=== PATIENT | female | born 1995 | race Caucasian/White ===

== ENCOUNTER → 2022-11-15 | Outpatient (REF) | payer OTHER ==
[2022-11-16 00:26] LABS: GC DNA AMPLIFICATION NEGATIVE (NEGATIVE)
== END ==
LOC: M SFHCWAGY 17:38
PROVIDERS: ATTEND Nurse Practitioner Family
DX: R10.2 Pelvic and perineal pain (principal)

== ENCOUNTER → 2022-11-17 | Outpatient (CLI) | payer OTHER | LOC: M WHC 11:25 → EDUNIT# 12:00 | PROVIDERS: ATTEND Nurse Practitioner Family | DX: R10.2 Pelvic and perineal pain (principal) ==

== ENCOUNTER → 2023-01-05 | Outpatient (CLI) | payer OTHER | LOC: M WHC 15:10 | PROVIDERS: ATTEND Nurse Practitioner Family | DX: N83.202 Unspecified ovarian cyst, left side (principal); N83.201 Unspecified ovarian cyst, right side ==

== ENCOUNTER → 2023-01-17 | Outpatient (CLI) | payer OTHER ==
[2023-01-17 17:54] LABS: HEMOGLOBIN A1c 4.9 % (4.0-6.0)
== END ==
LOC: M PLALAB 15:31
PROVIDERS: ATTEND Nurse Practitioner Family
DX: N83.202 Unspecified ovarian cyst, left side (principal)

== ENCOUNTER → 2023-03-02 | Outpatient (CLI) | payer OTHER | LOC: M WHC 14:40 | PROVIDERS: ATTEND Nurse Practitioner Family | DX: N83.202 Unspecified ovarian cyst, left side (principal) ==

== ENCOUNTER → 2023-06-23 | Outpatient (CLI) | payer OTHER | LOC: M WHC 07:42 | PROVIDERS: ATTEND Obstetrics & Gynecology | DX: N83.202 Unspecified ovarian cyst, left side (principal) ==

== ENCOUNTER → 2024-01-19 | Outpatient (REF) | payer OTHER ==
[2024-01-23 15:51] LABS: HPV APTIMA Not Detected (Not Detected)
== END ==
LOC: M SFHCWAGY 17:04
PROVIDERS: ATTEND Nurse Practitioner Family
DX: Z12.4 Encounter for screening for malignant neoplasm of cervix (principal); R87.610 Atypical squamous cells of undetermined significance on cytologic smear of cervix (ASC-US)
CPT/HCPCS: 87070; 87624; G0123

== ENCOUNTER → 2024-02-16 | Outpatient (CLI) | payer OTHER ==
[2024-02-16 18:14] LABS: BASO % 0.4 % (0.0-1.0); EOS # 0.1 10^3/uL (0.0-0.5); HEMATOCRIT 40.1 % (36.0-47.0); HEMOGLOBIN 13.6 g/dl (12.0-15.5); LYMPH # 2.4 10^3/uL (1.5-5.0); LYMPH % 26.5 % (24.0-44.0); MEAN CORPUSCULAR HEMOGLOBIN 29.5 pg (27.0-33.0); MEAN CORPUSCULAR HGB CONC 33.9 g/dl (32.0-36.5); MONO # 0.7 10^3/uL (0.0-0.8); MONO % 7.9 % (2.0-8.0); NEUTROPHILS # 5.7 10^3/uL (1.5-8.5); NEUTROPHILS % 63.9 % (36.0-66.0); PLATELET COUNT, AUTOMATED 339 10^3/uL (150-450); RED BLOOD COUNT 4.61 10^6/uL (4.00-5.40)
[2024-02-16 18:40] LABS: ALBUMIN 3.9 G/DL (3.2-5.2); ALKALINE PHOSPHATASE 48 U/L (35-104); ALT/SGPT 16 U/L (7.0-40); AST/SGOT 12 U/L (<34); BILIRUBIN,TOTAL 0.5 MG/DL (0.3-1.2); BLOOD UREA NITROGEN 10 MG/DL (9-23); CARBON DIOXIDE LEVEL 24 MMOL/L (20-31); CHLORIDE LEVEL 105 MMOL/L (98-107); CREATININE FOR GFR 0.73 MG/DL (0.55-1.30); GLOMERULAR FILTRATION RATE > 60.0 (>60); GLUCOSE, FASTING 87 MG/DL (60-100); POTASSIUM SERUM 4.3 MMOL/L (3.5-5.1); SODIUM LEVEL 140 MMOL/L (136-145); TOTAL PROTEIN 7.2 G/DL (5.7-8.2)
[2024-02-16 18:50] LABS: HCG, SERUM QUANTITATIVE 3513.8 MIU/ML (<4.2)
== END ==
LOC: M PLALAB 14:59
PROVIDERS: ATTEND Physician Assistant
DX: Z36.89 Encounter for other specified antenatal screening (principal); Z3A.01 Less than 8 weeks gestation of pregnancy

== ENCOUNTER → 2024-02-18 | Outpatient (CLI) | payer OTHER | LOC: M LAB 14:33 | PROVIDERS: ATTEND Physician Assistant | DX: Z34.90 Encounter for supervision of normal pregnancy, unspecified, unspecified trimester (principal); Z3A.01 Less than 8 weeks gestation of pregnancy ==

== ENCOUNTER 2024-03-10 15:28 | Emergency (ER) | payer OTHER ==
[~2024-03-10] VITALS: Ht 167.6 cm; Wt 72.0 kg
[2024-03-10 16:24] LABS: APPEARANCE, URINE HAZY (CLEAR); BACTERIA, URINE AUTO NEGATIVE (NEGATIVE); BILIRUBIN, URINE AUTO NEGATIVE (NEGATIVE); BLOOD, URINE BLOOD NEGATIVE (NEGATIVE); COLOR, URINE YELLOW (YELLOW); GLUCOSE, URINE (UA) AUTO NEGATIVE (NEGATIVE); KETONE, URINE AUTO NEGATIVE (NEGATIVE); LEUKOCYTE ESTERASE, URINE AUTO NEGATIVE (NEGATIVE); MUCUS, URINE SMALL (NEGATIVE); NITRITE, URINE AUTO NEGATIVE (NEGATIVE); PROTEIN, URINE AUTO NEGATIVE (NEGATIVE); RBC, URINE AUTO 2 /HPF (0-3); SPECIFIC GRAVITY URINE AUTO 1.023 (1.002-1.035); SQUAMOUS EPITHELIAL CELL UR AU 2 /HPF (0-6); UROBILINOGEN, URINE AUTO 0.2 mg/dL (0.0-2.0); WBC, URINE AUTO 2 /HPF (0-3)
[2024-03-10 16:25] LABS: BASO % 0.3 % (0.0-1.0); EOS # 0.1 10^3/uL (0.0-0.5); EOS % 0.6 % (0.0-3.0); HEMOGLOBIN 13.5 g/dl (12.0-15.5); LYMPH # 2.2 10^3/uL (1.5-5.0); LYMPH % 18.8 % (24.0-44.0); MEAN CORPUSCULAR HEMOGLOBIN 29.7 pg (27.0-33.0); MEAN CORPUSCULAR HGB CONC 34.6 g/dl (32.0-36.5); MEAN CORPUSCULAR VOLUME 85.7 fl (80.0-96.0); MONO # 0.8 10^3/uL (0.0-0.8); MONO % 6.8 % (2.0-8.0); NEUTROPHILS # 8.6 10^3/uL (1.5-8.5); NEUTROPHILS % 73.2 % (36.0-66.0); PLATELET COUNT, AUTOMATED 291 10^3/uL (150-450); RED BLOOD COUNT 4.55 10^6/uL (4.00-5.40); WHITE BLOOD COUNT 11.7 10^3/uL (4.0-10.0)
[2024-03-10 17:45] VITALS: BP 120/74; TEMP 98.9; O2SAT 100
== END 2024-03-10 17:46 | disposition home or self-care (01) ==
LOC: M ED 15:28
DX: O02.0 Blighted ovum and nonhydatidiform mole (principal)

== ENCOUNTER 2024-03-26 14:20 | Day surgery (SDC) | payer OTHER ==
[~2024-03-26] VITALS: Ht 167.6 cm; Wt 73.0 kg
[~2024-03-26 14:20] MED LIST: GABA-1172 PO
[2024-03-26] MEDS ORDERED: NS (Normal Saline) 0.9% 1,000 ML IV SCH ×2 (14:25→19:25)
[2024-03-26] MEDS ORDERED: fentaNYL 100 MCG/2 ML INJECTION As Ordered ONE (16:51)
[2024-03-26] MEDS ORDERED: propofoL 200 MG/20 ML VIAL As Ordered ONE (16:51)
[2024-03-26] MEDS ORDERED: MIDAZOLAM INJ 2MG/2ML VIAL As Ordered ONE (16:51)
[2024-03-26] MEDS ORDERED: LIDOCAINE 2% 100MG/5ML SDV (FOR ANES.) As Ordered ONE (16:52)
[2024-03-26] MEDS ORDERED: ACETAMINOPHEN 1000MG/100ML IV BAG As Ordered ONE (16:52)
[2024-03-26] MEDS ORDERED: ONDANSETRON 4MG 2ML VIAL As Ordered ONE (16:55)
[2024-03-26] MEDS ORDERED: KETOROLAC 60MG 2ML VIAL As Ordered ONE (18:08)
[2024-03-26] MEDS ORDERED: dexmedeTOMIDine (4MCG/ML)200MCG/50ML BTL (PRECEDEX) As Ordered ONE (18:11)
[2024-03-26] MEDS: LIDOCAINE 1% SDV 30ML VIAL As Ordered ONE (19:06)
[2024-03-26] MEDS ORDERED: oxyCODONE 5MG TAB PO PRN (19:25)
[2024-03-26] MEDS ORDERED: ONDANSETRON 4MG 2ML VIAL IV PRN (19:25)
[2024-03-26] MEDS ORDERED: HYDROMORPHONE HCL 0.5 MG/ 0.5 ML SYRINGE IV PRN (19:25)
[2024-03-26] MEDS ORDERED: fentaNYL 100 MCG/2 ML INJECTION IV PRN (19:25)
[2024-03-26] MEDS: DOXYCYCLINE HYCLATE 100MG TABLET PO ONE (19:52)
[2024-03-26 19:56] VITALS: BP 129/64; TEMP 98.2; O2SAT 99
== END 2024-03-26 20:01 | disposition home or self-care (01) ==
LOC: M SDC 14:20
PROVIDERS: ATTEND Specialist
DX: O02.1 Missed abortion (principal); Z88.8 Allergy status to other drugs, medicaments and biological substances; Z79.899 Other long term (current) drug therapy
CPT/HCPCS: 59820; 88305; J0131; J1885; J2250; J2405; J3010

== ENCOUNTER 2024-09-04 16:51 | Emergency (ER) | payer OTHER ==
[~2024-09-04] VITALS: Ht 167.6 cm; Wt 72.1 kg
[2024-09-04 18:10] LABS: BASO # 0.0 10^3/uL (0.0-0.2); BASO % 0.5 % (0.0-1.0); EOS # 0.1 10^3/uL (0.0-0.5); EOS % 0.6 % (0.0-3.0); LYMPH # 2.1 10^3/uL (1.5-5.0); LYMPH % 26.7 % (24.0-44.0); MONO # 0.5 10^3/uL (0.0-0.8); MONO % 6.0 % (2.0-8.0); NEUTROPHILS # 5.3 10^3/uL (1.5-8.5); NEUTROPHILS % 66.1 % (36.0-66.0); PLATELET COUNT, AUTOMATED 293 10^3/uL (150-450)
[2024-09-04 18:26] LABS: KETONE, URINE AUTO RFX NEGATIVE (NEGATIVE); LEUKOCYTE ESTERASE UR AUTO RFX NEGATIVE (NEGATIVE); MUCUS, URINE RFX SMALL (NEGATIVE); NITRITE, URINE AUTO RFX NEGATIVE (NEGATIVE); RBC, URINE AUTO RFX 1 /HPF (0-3); SQUAM EPITHELIAL CELL UR AURFX 1 /HPF (0-6); WBC, URINE AUTO RFX 1 /HPF (0-3)
[2024-09-04 18:35] LABS: CALCIUM LEVEL 9.8 MG/DL (8.5-10.1); CARBON DIOXIDE LEVEL 26 MMOL/L (20-31); CHLORIDE LEVEL 107 MMOL/L (98-107); CREATININE FOR GFR 0.78 MG/DL (0.55-1.30); GLOMERULAR FILTRATION RATE > 90.0 (>60); HCG, SERUM QUANTITATIVE 234.8 MIU/ML (<4.2); POTASSIUM SERUM 3.9 MMOL/L (3.5-5.1); SODIUM LEVEL 142 MMOL/L (136-145)
[2024-09-04 20:59] VITALS: BP 130/86; TEMP 98; O2SAT 100
== END 2024-09-04 21:06 | disposition home or self-care (01) ==
LOC: M ED 16:51
DX: O26.851 Spotting complicating pregnancy, first trimester (principal); Z3A.00 Weeks of gestation of pregnancy not specified; Z32.01 Encounter for pregnancy test, result positive; Z88.8 Allergy status to other drugs, medicaments and biological substances; Z79.899 Other long term (current) drug therapy

== ENCOUNTER → 2024-09-06 | Outpatient (REF) | payer OTHER | LOC: M LAB 18:06 | PROVIDERS: ATTEND Advanced Practice Midwife | DX: O20.9 Hemorrhage in early pregnancy, unspecified (principal); Z3A.00 Weeks of gestation of pregnancy not specified ==

== ENCOUNTER 2024-09-08 17:11 | Emergency (ER) | payer OTHER ==
[2024-09-08 18:42] LABS: KETONE, URINE AUTO RFX NEGATIVE (NEGATIVE); LEUKOCYTE ESTERASE UR AUTO RFX NEGATIVE (NEGATIVE); MUCUS, URINE RFX SMALL (NEGATIVE); NITRITE, URINE AUTO RFX NEGATIVE (NEGATIVE); RBC, URINE AUTO RFX 1 /HPF (0-3); SQUAM EPITHELIAL CELL UR AURFX 0 /HPF (0-6); WBC, URINE AUTO RFX 0 /HPF (0-3)
[2024-09-08 19:18] VITALS: BP 121/76; TEMP 97.8; O2SAT 100
== END 2024-09-08 19:21 | disposition home or self-care (01) ==
LOC: M ED 17:11
DX: O20.0 Threatened abortion (principal); Z88.8 Allergy status to other drugs, medicaments and biological substances

== ENCOUNTER → 2024-09-17 | Outpatient (CLI) | payer OTHER | LOC: M LAB 15:09 | PROVIDERS: ATTEND Advanced Practice Midwife | DX: O20.9 Hemorrhage in early pregnancy, unspecified (principal) ==

== ENCOUNTER → 2024-11-01 | Outpatient (CLI) | payer OTHER ==
[2024-11-01 17:41] LABS: FREE T4 1.43 NG/DL (0.89-1.76)
[2024-11-05 15:27] LABS: CYTOMEGALOVIRUS ANTIBODY IGG 5.70 U/mL (<0.60)
== END ==
LOC: M PLALAB 15:32
PROVIDERS: ATTEND Specialist
DX: N96 Recurrent pregnancy loss (principal)

== ENCOUNTER → 2024-11-27 | Outpatient (CLI) | payer OTHER | LOC: M PLALAB 15:10 | PROVIDERS: ATTEND Obstetrics & Gynecology Reproductive Endocrinology | DX: Z31.41 Encounter for fertility testing (principal) ==

== ENCOUNTER → 2024-12-20 | Outpatient (CLI) | payer OTHER | LOC: M PLALAB 11:48 | PROVIDERS: ATTEND Obstetrics & Gynecology | DX: Z32.01 Encounter for pregnancy test, result positive (principal) ==

== ENCOUNTER → 2024-12-22 | Outpatient (CLI) | payer OTHER | LOC: M LAB 13:31 | PROVIDERS: ATTEND Obstetrics & Gynecology | DX: Z32.01 Encounter for pregnancy test, result positive (principal) ==

== ENCOUNTER → 2025-02-01 | Outpatient (CLI) | payer OTHER ==
[2025-02-05 09:03] LABS: BETA-2 GLYCOPROTEIN I ABY IGA < 2.0 U/mL (<20.0); BETA-2 GLYCOPROTEIN I ABY IGG < 2.0 U/mL (<20.0); BETA-2 GLYCOPROTEIN I ABY IGM 2.0 U/mL (<20.0)
[2025-02-06 03:57] LABS: ANTI THROMBIN 3 ANTIGEN IMMUNO 102 % normal (80-120); ANTI THROMBIN 3 FUNCT ACTIVITY 128 % normal (80-135)
[2025-02-06 16:48] LABS: PROTEIN S ANTIGEN FREE 100 % normal (50-147); PROTEIN S ANTIGEN TOTAL 85 % normal (70-140)
[2025-02-06 23:52] LABS: PROTEIN C FUNCTIONAL ACTIVITY 79 % normal (70-180)
== END ==
LOC: M PLALAB 11:06
PROVIDERS: ATTEND Obstetrics & Gynecology Reproductive Endocrinology
DX: N96 Recurrent pregnancy loss (principal); Z31.41 Encounter for fertility testing

== ENCOUNTER → 2025-02-23 | Outpatient (CLI) | payer OTHER ==
[2025-02-23 09:40] LABS: HCG, SERUM QUANTITATIVE 12.3 MIU/ML (<4.2)
[2025-02-23 09:44] LABS: PROGESTERONE 7.81 NG/ML
== END ==
LOC: M LAB 08:33
PROVIDERS: ATTEND Obstetrics & Gynecology Reproductive Endocrinology
DX: Z32.00 Encounter for pregnancy test, result unknown (principal)

== ENCOUNTER → 2025-02-25 | Outpatient (CLI) | payer OTHER ==
[2025-02-25 09:18] LABS: HCG, SERUM QUANTITATIVE 4.5 MIU/ML (<4.2)
[2025-02-25 09:22] LABS: ESTRADIOL 50.4 PG/ML
[2025-02-25 09:23] LABS: PROGESTERONE 6.48 NG/ML
== END ==
LOC: M LAB 08:35
PROVIDERS: ATTEND Obstetrics & Gynecology Reproductive Endocrinology
DX: Z32.01 Encounter for pregnancy test, result positive (principal)